=== PATIENT | male | born 1950 | race Hispanic/Latino ===

== ENCOUNTER → 2019-04-22 | Day surgery (SDC) | payer MEDICARE ==
[2019-04-16 11:14] LABS: BASOPHILS % 0.4 % (0.0-1.0); EOSINOPHILS # (AUTO) 0.1 (0.0-0.4); EOSINOPHILS % 2.8 % (0.0-6.0); HEMATOCRIT 27.6 % (38.2-49.6); HEMOGLOBIN 9.2 g/dL (14.0-18.0); LYMPHOCYTES # (AUTO) 0.3 (1.0-3.2); LYMPHOCYTES % 11.5 % (18.0-39.1); MEAN CORPUSCULAR HEMOGLOBIN 28.4 pg (28-32); MEAN CORPUSCULAR HGB CONC 33.3 g/dL (31-35); MEAN CORPUSCULAR VOLUME 85.2 fL (81-99); MONOCYTES # (AUTO) 0.3 (0.2-0.8); NEUTROPHILS # (AUTO) 1.8 (2.1-6.9); NEUTROPHILS % 71.9 % (38.7-80.0); PLATELET COUNT 73 x10e3/uL (140-360); RED BLOOD COUNT 3.24 x10e6/uL (4.3-5.7); RED CELL DISTRIBUTION WIDTH 16.3 % (11.7-14.4)
[2019-04-16 11:23] LABS: INR 1.28; PROTHROMBIN TIME 16.6 seconds (11.9-14.5)
[2019-04-16 11:24] LABS: PARTIAL THROMBOPLASTIN TIME 37.1 seconds (23.8-35.5)
[2019-04-16 11:38] LABS: ALBUMIN 2.4 g/dL (3.5-5.0); ALBUMIN/GLOBULIN RATIO 0.4 (0.8-2.0); ANION GAP 8.9 mmol/L (8-16); CALCIUM 8.6 mg/dL (8.4-10.2); CREATININE, SERUM 1.31 mg/dL (0.72-1.25); POTASSIUM 4.9 mmol/L (3.5-5.1)
[~2019-04-22] MED LIST: ATARAX PO; CARBIDOPA/LEVODOPA PO; LACTULOSE20 GM/30 M PO; LEVOTHYROXINE50 MCG PO; LIDOCAINE HCL 2% LOCAL INJ 5 ML SDV VIAL INJ ONE; MAGNESIUM400 MG PO; MULTI-VITAMIN1 EACH PO; PANTOPRAZOLE SO40 MG PO; PROPOFOL IV EMULSION 10 MG/ML 50 ML VIAL ONE; VIT D3 PO; XIFAXAN550 MG PO
--- OUTSIDE RECORDS SUMMARY | 2019-04-22 07:47 | XMS REPORT ---
Author Author [facility] Address Unknown Phone Unavailable Care Team Providers Care Car Rider Name Role Phone Unavailable Unavailable Problems This patient has no known problems. Allergies, Adverse Reactions, Alerts This patient has no known allergies or adverse reactions. Medications This patient has no known medications. Results Test Description Test Time Test Comments Text Results Atomic Results Result Comments Blood Culture 2019-01-24 03:01:32 No growth at 5 days. Blood Culture 2019-01-19 03:01:40 No growth at [address] Abdomen and Pelvis w/o Contrast 2019-01-19 02:36:29 Patient: SHALINI LYNCH Date/Time01/19/2019 02:20 CDTReason for ExamAbdominal wall hernia ruptured;Abdominal painReportAFTER HOURS SERVICE ON: 01/19/2019 2:28 AMCT Scan of the Abdomen and Pelvis Without ContrastLocation Code [id number]: Abdominal pain;Abdominal wall hernia rupturedTechnique: Axial and reconstructed coronal scans were performed on a helical scanner pre oral and IV contrast. Study is limited secondary to lack of oral and IV contrast.One or more of the following dose reduction techniques were used: Automated exposure control, adjustment of the mA and/or kV according to patient size, and/or utilization of iterative reconstruction technique.Findings:Liver is small and slightly nodular. Spleen is enlarged measuring 16 cm and there are large left upper quadrant varices. There is moderate ascites.There is a contracted gallbladder containing gallstones. There are no peripancreatic inflammatory changes. Adrenal glands are unremarkable. There is no nephrolithiasis or hydronephrosis in either kidney. Left lower pole renal cysts are seen measuring up to 2.6 cm. Bladder is unremarkable.Moderate stool is seen scattered in the colon. The appendix is not visualized. There is a large ventral hernia above the level of the umbilicus containing small bowel loops and mild fluid when the hernia sac measuring 16.1 x 4.9 cm. The abdominal wall defect measures 5.5 cm. There is mild edema in the mesentery, likely from the ascites. Definite evidence of small bowel stranding dilatation or obstruction is seen. Copious amount of fluid is present in the small bowel suggesting enteritis.IMPRESSION:Large 16.1 cm ventral abdominal hernia containing nondilated small bowel loops and fluid.Mild enteritis.Nodular cirrhotic appearing liver with evidence of portal hypertension including splenomegaly, varices and moderate ascites.Cholelithiasis. Final Dictated by: MD Bowers Mohammad TDictated DT/TM: 01/19/2019 2:28 amSigned by: MD Bowers Mohammad TSigned (Electronic Signature): 01/19/2019 2:36 am IG Flags 2019-01-19 01:48:12 IG (test code=IG) 0.7 % 0.0-5.0 IG Abs (test code=IG Abs) 0 x10 Manual [id number] 01:48:12* Test Item Value Reference Range Comments Segs Man (test code=Segs Man) 88.0 % 36.0-70.0 Band Man (test code=Band Man) 0.0 % 0.0-6.0 Lymph Man (test code=Lymph Man) 8.0 % 12.0-44.0 Monocyte Man (test code=Monocyte Man) 4.0 % 0.0-11.0 Eos Man (test code=Eos Man) 0.0 % 0.0-7.0 Basophil Man (test code=Basophil Man) 0.0 0.0-2.0 Neut Man Abs (test code=Neut Man Abs) 3.9 x10 1.6-7.4 Lymph Man Abs (test code=Lymph Man Abs) 0.4 x10 0.5-4.6 [place] Man Abs (test code=[place] Man Abs) 0.2 x10 0.0-1.2 Eos Man Abs (test code=Eos Man Abs) 0.00 x10 0.00-0.74 Baso Man Abs (test code=Baso Man Abs) 0.00 x10 0.00-0.21 RBC Morph (test code=RBC Morph) As Indicated Normal Hypochromia (test code=Hypochromia) 1+ None Seen Plt Estimation (test code=Plt Estimation) Decreased Normal Complete Blood Count with [id number] 01:32:28* Test Item Value Reference Range Comments WBC (test code=WBC) 4.4 x10 4.4-10.5 RBC (test code=RBC) 3.22 x10 4.10-5.70 Hgb (test code=Hgb) 9.5 g/dL 13.4-17.4 Hct (test code=Hct) 27.9 % 38.7-52.0 MCV (test code=MCV) 86.60 fL 80.00-100.00 MCHC (test code=MCHC) 34.10 g/dL 32.00-37.50 RDW CV (test code=RDW CV) 15.7 % 11.5-14.5 MCH (test code=MCH) 29.5 pg 27.0-32.5 Platelets (test code=Platelets) 61.0 x10 140.0-440.0 Results called to and read back by: Romina Pal RN 01/19/2019 01:32:05 CDTNo info givenDD MPV (test code=MPV) 10.4 fL Slide Review (test code=Slide Review) Manual Auto Result created by [email or web address] [email or web address]_RFLX [email or web address]_XN_RFLX nRBC (test code=nRBC) 0 NRBC Abs (test code=NRBC Abs) 0.00 x10 Pos Diff XN (test code=Pos Diff XN) A Pos Count XN (test code=Pos Count XN) A IPF (test code=IPF) 2 % Pro B Natriuretic [id number] 01:28:47* Test Item Value Reference Range Comments NT-proBNP (test code=NT-proBNP) 180 pg/mL 0-124 Creatine [id number] 01:24:49* Test Item Value Reference Range Comments CK (test code=CK) 40 U/L 39-308 Lipase [id number] 01:24:49* Test Item Value Reference Range Comments Lipase Level (test code=Lipase Level) 41 U/L 13-60 Alcohol [id number] 01:24:49* Test Item Value Reference Range Comments Ethanol Level (test code=Ethanol Level) <0.00 g/dL 0.00-0.01 Intoxicated 0.080 g/dL or more Ethanol Inst (test code=Ethanol Inst) <0 Comprehensive Metabolic [id number] 01:24:48* Test Item Value Reference Range Comments Sodium Level (test code=Sodium Level) 127.0 mmol/L 135.0-145.0 Potassium Level (test code=Potassium Level) 5.1 mmol/L 3.5-5.1 Chloride Level (test code=Chloride Level) 96 mmol/L 98-105 CO2 (test code=CO2) 24 mmol/L 22-29 Anion Gap (test code=Anion Gap) 7 mmol/L 7-16 BUN (test code=BUN) 29.80 mg/dL 8.00-23.00 Creatinine Level (test code=Creatinine Level) 1.00 mg/dL 0.70-1.20 BUN/Creat Ratio (test code=BUN/Creat Ratio) 30 Glucose Level (test code=Glucose Level) 219 mg/dL 70-115 Calcium Level (test code=Calcium Level) 7.7 mg/dL 8.3-10.5 Alk Phos (test code=Alk Phos) 276 U/L 40-129 Bilirubin Total (test code=Bilirubin Total) 1.4 mg/dL 0.1-0.9 Albumin Level (test code=Albumin Level) 2.5 g/dL 3.5-5.2 Protein Total (test code=Protein Total) 7.2 g/dL 6.4-8.3 ALT (test code=ALT) 81 U/L 1-41 AST (test code=AST) 55 U/L 1-40 Globulin (test code=Globulin) 4.7 g/dL 2.9-3.1 A/G Ratio (test code=A/G Ratio) 0.5 ratio eGFR AA (test code=eGFR AA) >60 mL/min/1.73 m2 eGFR (estimated Glomerular Filtration Rate) is an estimated value, calculated from the patient's serum creatinine using the MDRD equation. It is NOT the patient's actual GFR. The eGFR provides a more clinically useful measure of kidney disease than serum creatinine alone.This calculation takes sex and race into account, if the information is provided. If the race is not provided, and the patient is -[place], multiply by 1.212. If sex is not provided, and the patient is female, multiply by 0.742. Results for patients <18 years of age have not been validated by the MDRD study and should be interpreted with caution. eGFR Result Interpretation:eGFR > or=60 is in the Normal RangeeGFR < 60 may mean kidney diseaseeGFR < 15 may mean kidney failure Ranges recommended by the National Kidney Foundation, http://nkdep.nih.gov Comprehensive Metabolic [id number] 01:24:48* Test Item Value Reference Range Comments Sodium Level (test code=Sodium Level) 127.0 mmol/L 135.0-145.0 Potassium Level (test code=Potassium Level) 5.1 mmol/L 3.5-5.1 Chloride Level (test code=Chloride Level) 96 mmol/L 98-105 CO2 (test code=CO2) 24 mmol/L 22-29 Anion Gap (test code=Anion Gap) 7 mmol/L 7-16 BUN (test code=BUN) 29.80 mg/dL 8.00-23.00 Creatinine Level (test code=Creatinine Level) 1.00 mg/dL 0.70-1.20 BUN/Creat Ratio (test code=BUN/Creat Ratio) 30 Glucose Level (test code=Glucose Level) 219 mg/dL 70-115 Calcium Level (test code=Calcium Level) 7.7 mg/dL 8.3-10.5 Alk Phos (test code=Alk Phos) 276 U/L 40-129 Bilirubin Total (test code=Bilirubin Total) 1.4 mg/dL 0.1-0.9 Albumin Level (test code=Albumin Level) 2.5 g/dL 3.5-5.2 Protein Total (test code=Protein Total) 7.2 g/dL 6.4-8.3 ALT (test code=ALT) 81 U/L 1-41 AST (test code=AST) 55 U/L 1-40 Globulin (test code=Globulin) 4.7 g/dL 2.9-3.1 A/G Ratio (test code=A/G Ratio) 0.5 ratio eGFR AA (test code=eGFR AA) >60 mL/min/1.73 m2 eGFR (estimated Glomerular Filtration Rate) is an estimated value, calculated from the patient's serum creatinine using the MDRD equation. It is NOT the patient's actual GFR. The eGFR provides a more clinically useful measure of kidney disease than serum creatinine alone.This calculation takes sex and race into account, if the information is provided. If the race is not provided, and the patient is -[place], multiply by 1.212. If sex is not provided, and the patient is female, multiply by 0.742. Results for patients <18 years of age have not been validated by the MDRD study and should be interpreted with caution. eGFR Result Interpretation:eGFR > or=60 is in the Normal RangeeGFR < 60 may mean kidney diseaseeGFR < 15 may mean kidney failure Ranges recommended by the National Kidney Foundation, http://nkdep.nih.gov eGFR Non-AA (test code=eGFR Non-AA) >60.00 mL/min/1.73 m2 eGFR (estimated Glomerular Filtration Rate) is an estimated value, calculated from the patient's serum creatinine using the MDRD equation. It is NOT the patient's actual GFR. The eGFR provides a more clinically useful measure of kidney disease than serum creatinine alone.This calculation takes sex and race into account, if the information is provided. If the race is not provided, and the patient is -[place], multiply by 1.212. If sex is not provided, and the patient is female, multiply by 0.742. Results for patients <18 years of age have not been validated by the MDRD study and should be interpreted with caution. eGFR Result Interpretation:eGFR > or=60 is in the Normal RangeeGFR < 60 may mean kidney diseaseeGFR < 15 may mean kidney failure Ranges recommended by the National Kidney Foundation, http://nkdep.nih.gov Comprehensive Metabolic [id number] 01:24:48* Test Item Value Reference Range Comments Sodium Level (test code=Sodium Level) 127.0 mmol/L 135.0-145.0 Potassium Level (test code=Potassium Level) 5.1 mmol/L 3.5-5.1 Chloride Level (test code=Chloride Level) 96 mmol/L 98-105 CO2 (test code=CO2) 24 mmol/L 22-29 Anion Gap (test code=Anion Gap) 7 mmol/L 7-16 BUN (test code=BUN) 29.80 mg/dL 8.00-23.00 Creatinine Level (test code=Creatinine Level) 1.00 mg/dL 0.70-1.20 BUN/Creat Ratio (test code=BUN/Creat Ratio) 30 Glucose Level (test code=Glucose Level) 219 mg/dL 70-115 Calcium Level (test code=Calcium Level) 7.7 mg/dL 8.3-10.5 Alk Phos (test code=Alk Phos) 276 U/L 40-129 Bilirubin Total (test code=Bilirubin Total) 1.4 mg/dL 0.1-0.9 Albumin Level (test code=Albumin Level) 2.5 g/dL 3.5-5.2 Protein Total (test code=Protein Total) 7.2 g/dL 6.4-8.3 ALT (test code=ALT) 81 U/L 1-41 AST (test code=AST) 55 U/L 1-40 Globulin (test code=Globulin) 4.7 g/dL 2.9-3.1 A/G Ratio (test code=A/G Ratio) 0.5 ratio eGFR AA (test code=eGFR AA) >60 mL/min/1.73 m2 eGFR (estimated Glomerular Filtration Rate) is an estimated value, calculated from the patient's serum creatinine using the MDRD equation. It is NOT the patient's actual GFR. The eGFR provides a more clinically useful measure of kidney disease than serum creatinine alone.This calculation takes sex and race into account, if the information is provided. If the race is not provided, and the patient is -[place], multiply by 1.212. If sex is not provided, and the patient is female, multiply by 0.742. Results for patients <18 years of age have not been validated by the MDRD study and should be interpreted with caution. eGFR Result Interpretation:eGFR > or=60 is in the Normal RangeeGFR < 60 may mean kidney diseaseeGFR < 15 may mean kidney failure Ranges recommended by the National Kidney Foundation, http://nkdep.nih.gov eGFR Non-AA (test code=eGFR Non-AA) >60.00 mL/min/1.73 m2 eGFR (estimated Glomerular Filtration Rate) is an estimated value, calculated from the patient's serum creatinine using the MDRD equation. It is NOT the patient's actual GFR. The eGFR provides a more clinically useful measure of kidney disease than serum creatinine alone.This calculation takes sex and race into account, if the information is provided. If the race is not provided, and the patient is -[place], multiply by 1.212. If sex is not provided, and the patient is female, multiply by 0.742. Results for patients <18 years of age have not been validated by the MDRD study and should be interpreted with caution. eGFR Result Interpretation:eGFR > or=60 is in the Normal RangeeGFR < 60 may mean kidney diseaseeGFR < 15 may mean kidney failure Ranges recommended by the National Kidney Foundation, http://nkdep.nih.gov Troponin [id number] 01:21:27* Test Item Value Reference Range Comments Troponin-T (test code=Troponin-T) <6.000 ng/L 0.000-22.000 The CV of the assay at 99th percentile for both male and female patient population is < 10%. A rise and fall in WILL with at least one value above the 99th percentile with clinical evidence of myocardial ischemia would support a diagnosis of AMI. A delta of at least 20% is recommended to access acute changes in results above the 99th percentile in serial measurements. Stable WILL levels (<20%) delta above the 99th percentile URL would support a diagnosis of chronic myocardial injury. Partial Thromboplastin [id number] 01:19:06* Test Item Value Reference Range Comments Partial Thromboplastin Time (test code=Partial Thromboplastin Time) 28.40 seconds 24.39-37.25 Prothrombin Time and [id number] 01:19:03* Test Item Value Reference Range Comments Prothrombin Time (test code=Prothrombin Time) 15.7 seconds 9.8-13.4 INR (test code=INR) 1.4 ratio 0.6-1.2
[2019-04-22 09:18] LABS: ANION GAP 13.8 mmol/L (8-16); BLOOD UREA NITROGEN 11 mg/dL (7-26); BUN/CREATININE RATIO 11 (6-25); CALCIUM 8.7 mg/dL (8.4-10.2); CARBON DIOXIDE 19 mmol/L (22-29); CHLORIDE 101 mmol/L (98-107); CREATININE, SERUM 1.03 mg/dL (0.72-1.25); EST GLOMERULAR FILTRATION RATE > 60 ML/MIN (60-); GLUCOSE 107 mg/dL (74-118); POTASSIUM 4.8 mmol/L (3.5-5.1); SODIUM 129 mmol/L (136-145)
[2019-04-22 10:15] VITALS: BP 125/62
== END | disposition home or self-care (01) ==
LOC: OR 07:44
PROVIDERS: ATTEND Internal Medicine Gastroenterology
DX: K70.30 Alcoholic cirrhosis of liver without ascites (principal); I85.10 Secondary esophageal varices without bleeding; K29.70 Gastritis, unspecified, without bleeding; Z71.3 Dietary counseling and surveillance; E66.3 Overweight; B19.20 Unspecified viral hepatitis C without hepatic coma; G20 Parkinson's disease; Z01.810 Encounter for preprocedural cardiovascular examination; Z01.812 Encounter for preprocedural laboratory examination; Z68.25 Body mass index [BMI] 25.0-25.9, adult
CPT/HCPCS: 36415 ×2; 43244; 80048; 80053; 85025; 85610; 85730; 93005; J2001; J2704; 43235; 43255

== ENCOUNTER → 2019-12-02 | Day surgery (SDC) | payer MEDICARE, OTHER ==
[2019-11-27 10:05] LABS: BASOPHILS % 0.9 % (0.0-1.0); EOSINOPHILS # (AUTO) 0.1 (0.0-0.4); EOSINOPHILS % 6.1 % (0.0-6.0); HEMATOCRIT 28.3 % (38.2-49.6); HEMOGLOBIN 8.9 g/dL (14.0-18.0); LYMPHOCYTES # (AUTO) 0.4 (1.0-3.2); LYMPHOCYTES % 17.8 % (18.0-39.1); MEAN CORPUSCULAR HEMOGLOBIN 25.4 pg (28-32); MEAN CORPUSCULAR HGB CONC 31.4 g/dL (31-35); MEAN CORPUSCULAR VOLUME 80.9 fL (81-99); MONOCYTES # (AUTO) 0.4 (0.2-0.8); NEUTROPHILS # (AUTO) 1.3 (2.1-6.9); NEUTROPHILS % 57.8 % (38.7-80.0); PLATELET COUNT 93 x10e3/uL (140-360); RED CELL DISTRIBUTION WIDTH 18.1 % (11.7-14.4)
[2019-11-27 10:17] LABS: INR 1.24; PROTHROMBIN TIME 16.4 seconds (11.9-14.5)
[2019-11-27 10:18] LABS: PARTIAL THROMBOPLASTIN TIME 35.5 seconds (23.8-35.5)
[2019-11-27 10:24] LABS: ALBUMIN/GLOBULIN RATIO 0.3 (0.8-2.0); ANION GAP 10.1 mmol/L (8-16); CALCIUM 7.9 mg/dL (8.4-10.2); CREATININE, SERUM 1.39 mg/dL (0.72-1.25); POTASSIUM 4.1 mmol/L (3.5-5.1)
[2019-11-27 20:02] LABS: BAND NEUTROPHILS % (MANUAL) 1 %; EOSINOPHILS % (MANUAL) 6 % (0-7); LYMPHOCYTES % (MANUAL) 17 % (19-48); MONOCYTES % (MANUAL) 16 % (3.4-9.0); NEUTROPHILS % (MANUAL) 59 % (40-74)
[2019-11-27 20:03] LABS: PLATELET ESTIMATE SLIGHTLY DECREASED; PLATELET MORPHOLOGY COMMENT NORMAL; RBC MORPHOLOGY COMMENT NORMAL
[~2019-12-02] MED LIST changes: +FUROSEMIDE40 MG PO; +HYDROXYZINE HCL25 MG PO; -LIDOCAINE HCL 2% LOCAL INJ 5 ML SDV VIAL INJ ONE; +MIRTAZAPINE15 MG PO; +PROPOFOL IV EMULSION 10 MG/ML 20 ML VIAL ONE; -PROPOFOL IV EMULSION 10 MG/ML 50 ML VIAL ONE; +SPIRONOLACTONE25 MG PO
[2019-12-02 09:55] VITALS: BP 115/67
== END | disposition home or self-care (01) ==
LOC: OR 06:47
PROVIDERS: ATTEND Internal Medicine Gastroenterology
DX: K70.30 Alcoholic cirrhosis of liver without ascites (principal); I85.10 Secondary esophageal varices without bleeding; Z71.3 Dietary counseling and surveillance; E66.3 Overweight; K76.6 Portal hypertension; B19.20 Unspecified viral hepatitis C without hepatic coma; E07.9 Disorder of thyroid, unspecified; Z01.810 Encounter for preprocedural cardiovascular examination; Z01.812 Encounter for preprocedural laboratory examination; Z11.59 Encounter for screening for other viral diseases; Z68.27 Body mass index [BMI] 27.0-27.9, adult
CPT/HCPCS: 36415; 43244; 80053; 85025; 85610; 85730; 87635; 93005; J2704; 43255

== ENCOUNTER → 2020-11-23 | Day surgery (SDC) | payer MEDICARE ==
[2020-11-20 10:45] LABS: BASOPHILS % 1.5 % (0.0-1.0); EOSINOPHILS # (AUTO) 0.1 (0.0-0.4); EOSINOPHILS % 3.5 % (0.0-6.0); HEMATOCRIT 29.2 % (38.2-49.6); HEMOGLOBIN 9.2 g/dL (14.0-18.0); LYMPHOCYTES # (AUTO) 0.3 (1.0-3.2); LYMPHOCYTES % 16.9 % (18.0-39.1); MEAN CORPUSCULAR HEMOGLOBIN 25.3 pg (28-32); MEAN CORPUSCULAR HGB CONC 31.5 g/dL (31-35); MEAN CORPUSCULAR VOLUME 80.4 fL (81-99); MONOCYTES # (AUTO) 0.2 (0.2-0.8); MONOCYTES % 10.9 % (4.4-11.3); NEUTROPHILS # (AUTO) 1.3 (2.1-6.9); NEUTROPHILS % 66.7 % (38.7-80.0); PLATELET COUNT 82 x10e3/uL (140-360); RED BLOOD COUNT 3.63 x10e6/uL (4.3-5.7); RED CELL DISTRIBUTION WIDTH 18.1 % (11.7-14.4)
[2020-11-20 11:09] LABS: INR 1.27; PROTHROMBIN TIME 16.6 seconds (11.9-14.5)
[2020-11-20 11:10] LABS: PARTIAL THROMBOPLASTIN TIME 36.3 seconds (23.8-35.5)
[2020-11-20 11:18] LABS: ALBUMIN 2.6 g/dL (3.5-5.0); ALBUMIN/GLOBULIN RATIO 0.4 (0.8-2.0); ANION GAP 11.3 mmol/L (8-16); CALCIUM 8.3 mg/dL (8.4-10.2); CREATININE, SERUM 1.51 mg/dL (0.72-1.25); POTASSIUM 4.3 mmol/L (3.5-5.1)
[~2020-11-23] MED LIST changes: +LIDOCAINE HCL 2% LOCAL INJ 5 ML SDV VIAL INJ ONE
[2020-11-23 09:05] VITALS: BP 116/70
== END | disposition home or self-care (01) ==
LOC: OR 06:24
PROVIDERS: ATTEND Internal Medicine Gastroenterology
DX: K70.30 Alcoholic cirrhosis of liver without ascites (principal); I85.10 Secondary esophageal varices without bleeding; K29.50 Unspecified chronic gastritis without bleeding; K44.9 Diaphragmatic hernia without obstruction or gangrene; Z71.3 Dietary counseling and surveillance; N18.9 Chronic kidney disease, unspecified; E66.3 Overweight; Z01.810 Encounter for preprocedural cardiovascular examination; Z01.812 Encounter for preprocedural laboratory examination; Z20.822 Contact with and (suspected) exposure to COVID-19; Z68.28 Body mass index [BMI] 28.0-28.9, adult
CPT/HCPCS: 36415; 43235; 80053; 85025; 85610; 85730; 93005; J2001; J2704; U0002; 43239